=== PATIENT | male | born 1975 | race African-American/Black ===

== ENCOUNTER 2018-09-09 12:11 | Emergency (ER) | payer OTHER ==
[2018-09-09] MEDS ORDERED: Tetracaine 0.5% OPHTH SOLN/PF 4 ML BOT ONE (12:21)
[2018-09-09] MEDS ORDERED: Erythromycin Base 0.5% Ophth Oint 3.5 gm Tube ONE (12:43)
== END 2018-09-09 12:55 | disposition home or self-care (01) ==
LOC: MADERS 12:11
DX: S05.01XA Injury of conjunctiva and corneal abrasion without foreign body, right eye, initial encounter (principal); E11.9 Type 2 diabetes mellitus without complications; I10 Essential (primary) hypertension; Z79.899 Other long term (current) drug therapy; Z79.84 Long term (current) use of oral hypoglycemic drugs; W22.8XXA Striking against or struck by other objects, initial encounter